=== PATIENT | female | born 1990 | race African-American/Black ===

== ENCOUNTER 2016-09-30 19:29 | Emergency (ER) | payer OTHER, MEDICAID ==
[~2016-09-30] VITALS: Ht 160 cm; Wt 79.0 kg
[2016-09-30 22:45] VITALS: BP 114/73
== END 2016-09-30 22:55 | disposition home or self-care (01) ==
LOC: ER 19:29 → EDBD 19:29 → ER 22:55
DX: R07.0 Pain in throat (principal); F12.10 Cannabis abuse, uncomplicated; Z98.890 Other specified postprocedural states
CPT/HCPCS: 81025; 99283